=== PATIENT | male | born 1985 | race Caucasian/White ===

== ENCOUNTER 2017-03-23 19:18 | Emergency (ER) | payer BC ==
--- NOTE | 2017-03-23 20:38 | ERNOTE ---
Abdominal HPI - General Chief Complaint: Abdominal Pain Time Seen by Provider: 03/23/17 20:30 Source: patient Exam Limitations: no limitations - Immun/Allergies/Home Medications Immunizatons: IMMUNIZATION HX Immunizations Up to Date Yes History of Influenza Vaccine No Hx Pneumococcal Vaccination No Allergies/Adverse Reactions: Allergies latex Allergy (Verified 03/23/17 19:33) meperidine HCl [From Demerol] Allergy (Verified 03/23/17 19:33) prochlorperazine [From Compazine] Allergy (Verified 03/23/17 19:33) prochlorperazine edisylate [From Compazine] Allergy (Verified 03/23/17 19:33) prochlorperazine maleate [From Compazine] Allergy (Verified 03/23/17 19:33) Home Medications: HOME MEDICATIONS Adalimumab [Humira Pen Crohn-Uc-Hs Starter] 40 mg SQ Q14D 11/13/13 [Last Taken 04/04/15] predniSONE [Prednisone] 40 mg PO DAILY 03/23/17 [Last Taken Unknown] - History of Present Illness Narrative: 31 yo pt with Crohns has been hospitalized twice in the past 6 months. Since his last admission he states he has had crampy abdominal pain off and on that lasts minutes at a time and does not usually interfere with eating. 3 days ago he had pain that increased to the point that he did not have an appetite but was able to hold down any food that he ate. He states tonight he is just " tired of this" and "a little concerned" that there is something building up. He recognizes that he has been much worse before. Timing: intermittent Quality: moderate, severe, aching, cramping Activities at Onset: none Modifying Factors - (Worsens): Present: eating Associated Symptoms: Present: nausea. Absent: vomiting Prior Abdominal Problems: Present: similar symptoms Prior Treatment: Present: treated by physician - currently taking Humira currently and he feels it is working fairly well. Review of Systems - Review of Systems Constitutional: Absent: recent illness, fever, chills EYE: Present: no symptoms reported ENT: Absent: nasal drainage, sore throat Respiratory: Absent: shortness of breath, cough Cardiology: Absent: chest pain, palpitations Gastrointestinal/Abdominal: Present: See HPI, nausea. Absent: vomiting, diarrhea - but some loose stools Genitourinary: Present: no symptoms reported Musculoskeletal: Present: no symptoms reported Skin: Present: no symptoms reported Neurological: Present: no symptoms reported Endocrine: Absent: excessive sweating, flushing Hematologic/Lymphatic: Present: no symptoms reported Psych: Present: no symptoms reported - Patient's Past Medical History Patient History - Medical: Other Patient History - Cardiac/Respiratory: No pertinent hx Patient History - Cancer: No Hx of Cancer Patient History - Surgical Procedures: Colonoscopy, EGD, Hernia Repair Patient History - Other: None - Family History Patient denies Family History - Medical: Diabetes Type 2 - Social History Living Situations: alone Abuse History: No History of abuse Psych History: No pertinent hx Smoking Status: Never smoker Have you smoked in the past 12 months: No Do you dip or chew tobacco: No Alcohol Use: none Drug Use: none - Immunizations Immunizations Up to Date: Yes Hx Pneumococcal Vaccination: No History of Influenza Vaccine: No Physical Exam - Physical Exam General Appearance: Present: wd/wn, alert, no apparent distress Head Exam: Present: normal inspection, no evidence of injury Eye Exam: Normal inspection: bilateral Ears, Nose, Throat: Present: normal ENT inspection Respiratory: Present: no respiratory distress, normal breath sounds, no accessory muscle use Cardiovascular/Chest: Present: regular rate, rhythm, no murmur, normal peripheral pulses Gastrointestinal/Abdominal: Present: nontender, nondistended, soft, abnormal bowel sounds - Loud but otherwise normal borborigmi then very quiet bowel before Extremity Exam: Present: normal inspection, non-tender Neurological Exam: Present: alert, oriented, normal mood/affect, no motor/ sensory deficits Skin Exam: Present: normal color, warm/dry Lymphatic Exam: Present: no adenopathy ED Progress - Results and Orders Patient's Lab Results:: I have reviewed the patient's lab results. Results and Orders: Laboratory Tests 03/23/17 03/23/17 03/23/17 20:55 20:55 20:55 WBC 9.7 Hgb 14.7 Hct 41.6 L Plt Count 291 ESR 11 H Sodium 141 Potassium 3.9 Chloride 103 Carbon Dioxide 30.1 Anion Gap 11.8 BUN 15 Creatinine 0.92 Random Glucose 106 Calcium 8.7 Total Bilirubin 0.7 AST 16 ALT 27 Alkaline Phosphatase 65 C-Reactive Prot, Quant Less than 0.2 Total Protein 7.6 Albumin 3.6 - Vital Signs Patient's Vital Signs:: I have reviewed the patient's vital signs. Vital Signs: Vital Signs 03/23/17 19:25 Temperature 37.4 C Pulse Rate 95 Respiratory 18 Rate Blood Pressure 130/87 O2 Sat by Pulse 99 Oximetry - X-Ray X-Ray #1 X-Ray: abdomen Interpretation: Reviewed by me X-ray Comments: Findings: Scattered air-filled loops of both large and small bowel. No dilation of the small or large bowel to suggest mechanical obstruction. Scattered air-fluid levels. No free air or free fluid. Osseous structures are normal. IMPRESSION: NONSPECIFIC NONOBSTRUCTED BOWEL GAS PATTERN WHICH COULD REPRESENT VIRAL ENTERITIS GIVEN THE PATIENT'S SYMPTOMS.. Electronically signed by Spencer Richey D.O.. - Progress/Reassessment Chief Complaint: Abdominal Pain Progress Note-Subjective: 03/23/17 22:44 discussed the normal findings on labs and non-obstructive findings of the x- ray. Discussed gas-x and probiotics. Pt states he has taken probiotics with the ok of his GI doctor and it seemed to help previously. He expresses understanding and agreement with that plan. Departure Clinical Impression: Gas pain - Departure Disposition: Home self-care Condition: Good Instructions: Indigestion Additional Instructions: Try gas-x as directed for 5-7 days. You may also begin taking probiotics, make sure you get 5-10 billion cfu's daily. Follow up with your GI specialist as scheduled. Referrals: Bianca Ambrosio, [Primary Care Provider] -
[2017-03-23 21:00] LABS: Hematocrit 41.6 % (42.0-52.0); Hemoglobin 14.7 gm/dL (13.5-18.0); Mean Cell Volume 88.1 fl (78-100); Mean Corpuscular Hemoglobin 31.1 pg (27-31); Mean Corpuscular Hgb Conc 35.3 g/dl (32-36); Mean Platelet Volume 8.8 fl (6.0-9.5); Neutrophil # 5.9 K/mm3 (1.3-6.0); Neutrophil % 60.2 % (42-75.0); Platelet Count 291 K/mm3 (150-450); Red Blood Count 4.72 M/mm3 (4.7-6.0); Red Cell Distribution Width 12.5 % (11.5-14.0); White Blood Count 9.7 K/mm3 (4.0-10.5)
[2017-03-23 21:18] LABS: ALT 27 U/L (19-67); AST 16 U/L (0-48); Albumin * 3.6 gm/dl (3.4-5.0); Alkaline Phosphatase * 65 U/L (50-170); Anion Gap 11.8 mmol/L (6.8-13.8); BUN/Creatinine Ratio 16.3 (9.0-21.6); Bilirubin, Total 0.7 mg/dL (0.0-1.1); Blood Urea Nitrogen 15 mg/dL (6-23); Ca. Corrected For Albumin 8.7 mg/dL (8.4-10.2); Calcium * 8.7 mg/dL (7.9-10.9); Carbon Dioxide 30.1 mmol/L (24-32.6); Chloride 103 mmol/L (97-106); Glucose * 106 mg/dL (70-110); Potassium 3.9 mmol/L (3.4-4.6); Sodium 141 mmol/L (132-142); Total Protein 7.6 gm/dL (6.2-8.2)
[2017-03-23 22:34] VITALS: BP 144/74
== END 2017-03-23 22:31 | disposition home or self-care (01) ==
LOC: ER 19:18
DX: R14.1 Gas pain (principal); Z87.19 Personal history of other diseases of the digestive system